=== PATIENT | female | born 1995 | race Caucasian/White ===

== ENCOUNTER 2020-10-07 22:58 | Emergency (ER) | payer OTHER ==
[~2020-10-07] VITALS: Ht 167.6 cm; Wt 58.1 kg
[~2020-10-07 22:58] MED LIST: CIPROFLOXACIN500 M1 PO; CLARITIN10 MG; HYDROCODONE-APA1 TA1 PO; IBUPROFEN200 M2; LOESTRIN1 EAC1; MINASTRIN 24 F1 EACH PO; QNASL8.7 GM; SINGULAIR 10 MG10 M1; ZOFRAN ODT4 MG PO; ZOFRAN ODT4 MG SUBLING
[2020-10-07 23:40] LABS: HEMATOCRIT 40.9 % (37.0-47.0); HEMOGLOBIN 14.1 gm/dL (12.0-15.0); MCH 30.7 pg (26.0-34.0); MCHC 34.6 g/dL (28.0-37.0); MCV 88.8 fL (80.0-100.0); MPV 10.1 fl. (7.2-11.1); NUCLEATED RBCS 0 /100WBC; PLATELET COUNT* 202 thou/uL (150-400); RDW-CV 12.7 % (10.5-14.5); WBC 20.2 thou/uL (4.0-11.0)
[2020-10-07 23:50] LABS: CALCIUM 8.9 mg/dL (8.5-10.1); CREATININE 0.8 mg/dL (0.6-1.3); POTASSIUM 3.3 mmol/L (3.5-5.1)
[2020-10-07 23:55] LABS: ALBUMIN 4.6 g/dL (3.4-5.0); TOTAL BILIRUBIN 0.4 mg/dL (<0.1-1.0); TOTAL PROTEIN 7.9 g/dL (6.4-8.2)
[2020-10-08 00:14] LABS: ABSOLUTE LYMPHOCYTES 2.2 thou/uL (0.8-5.3)
[2020-10-08 00:15] LABS: PLATELET ESTIMATE ADEQUATE
[2020-10-08 01:20] LABS: URINE BILIRUBIN NEGATIVE (Negative); URINE BLOOD TRACE (Negative); URINE CLARITY CLEAR; URINE COLOR YELLOW; URINE GLUCOSE-RANDOM NEGATIVE (Negative); URINE KETONES 1+ (Negative); URINE LEUKOCYTES-REFLEX 1+ (Negative); URINE NITRITE-REFLEX NEGATIVE (Negative); URINE PROTEIN NEGATIVE (Negative); URINE UROBILINOGEN 0.2 E.U./dl (0.2-1.0)
[2020-10-08 01:28] LABS: AMP/METHAMP Negative (Negative); BARBITURATES Negative (Negative); BENZODIAZEPINES Negative (Negative); COCAINE Negative (Negative); METHADONE Negative (Negative); OPIATES Negative (Negative); PCP Negative (Negative); THC Negative (Negative)
[2020-10-08 01:58] LABS: CASTS None Seen /LPF (None Seen); SQUAMOUS >10 Many /LPF (0-3)
[2020-10-08 01:59] LABS: URINE RBC 0-2 Rare /HPF (0-2); URINE WBC-REFLEX 6-15 Few /HPF (0-5)
[2020-10-08 02:00] LABS: CRYSTALS None Seen /LPF (None Seen)
[2020-10-08] MEDS ORDERED: HYDROCODON-ACE1 EAC7 PO (02:56)
[2020-10-08] MEDS ORDERED: CEPHALEXIN500 MG PO (02:56)
[2020-10-08] MEDS ORDERED: ZOFRAN ODT4 MG PO (02:56)
[2020-10-08 03:15] VITALS: BP 107/57
== END 2020-10-08 03:17 | disposition home or self-care (01) ==
LOC: M.ERS 22:58
PROVIDERS: Personal Emergency Response Attendant
DX: N39.0 Urinary tract infection, site not specified (principal); R11.2 Nausea with vomiting, unspecified; Z79.899 Other long term (current) drug therapy

== ENCOUNTER 2020-10-29 08:35 | Emergency (ER) | payer OTHER ==
[~2020-10-29] VITALS: Ht 167.6 cm; Wt 59.0 kg
[~2020-10-29 08:35] MED LIST changes: +CEPHALEXIN500 MG PO; +HYDROCODON-ACE1 EAC7 PO
[2020-10-29] MEDS ORDERED: PROZAC20 M1 PO (08:52)
[2020-10-29] MEDS ORDERED: PROTONIX40 M4 PO (09:28)
[2020-10-29] MEDS ORDERED: ZOFRAN ODT4 MG DISSOLVE (09:28)
[2020-10-29] MEDS ORDERED: XANAX 0.25 MG0.25 MG PO (09:28)
[2020-10-29 09:39] VITALS: BP 138/72
== END 2020-10-29 09:40 | disposition home or self-care (01) ==
LOC: M.ERS 08:35
DX: F41.9 Anxiety disorder, unspecified (principal); Z98.890 Other specified postprocedural states